=== PATIENT | male | born 1955 | race African-American/Black ===

== ENCOUNTER 2023-01-09 02:53 | Emergency (ER) | payer MEDICARE ==
[~2023-01-09] VITALS: Ht 180.3 cm; Wt 63.0 kg
[2023-01-09] MEDS ORDERED: IBUP-2029 MT (05:22)
[2023-01-09] MEDS ORDERED: AMOX-494 MT (05:22)
[2023-01-09 05:30] VITALS: BP 119/75
[2023-01-09] MEDS ORDERED: IBUPROFEN 600MG TABLET PO ONE (05:30)
== END 2023-01-09 05:30 | disposition home or self-care (01) ==
LOC: ER 04:29
DX: K04.7 Periapical abscess without sinus (principal); I10 Essential (primary) hypertension; Z98.890 Other specified postprocedural states
CPT/HCPCS: 99282